=== PATIENT | male | born 1975 | race Caucasian/White ===

== ENCOUNTER → 2024-02-13 19:03 | Outpatient (CLI) | payer BC, SELFPAY ==
--- NOTE | 2024-02-13 19:08 | DI.MRI.S_ITS ---
PROCEDURE: MR LUMBAR SPINE WO CON INDICATIONS: LUMBOSACRAL SPONDYLOSIS TECHNIQUE: Noncontrast sagittal T1 spin echo and T2 fast echo, sagittal STIR, and T2 fast spin echo through the lumbar spine. In cases with scoliosis, additional coronal T2 fast spin echo may be performed. COMPARISON: [facility], CR, XR LUMBAR SPINE 2 OR 3 VIEWS, 02/08/2024, 11:56. FINDINGS: Image quality: Excellent. Alignment and Curvature: Mild straightening of the normal lumbar lordosis. Transitional vertebral body anatomy with lumbarization of S1. The 1st non rib-bearing vertebral bodies designated as L1. Bone Marrow: Marrow is of normal overall signal. No acute vertebral body compression fractures. Spinal Cord: Conus medullaris terminates at the L2 level. Visualized cord demonstrates normal signal and size. Paraspinous Soft Tissues: No paravertebral masses. T12-L1: Only seen on sagittal. Focal left paracentral disc protrusion. Possible mild central canal stenosis. No neural foraminal stenosis. L1-L2: Normal appearance. L2-L3: Mild facet arthropathy. No central canal or neural foraminal stenosis. L3-L4: Facet arthropathy and thickening of ligamentum flavum. Mild central canal stenosis. No neural foraminal stenosis. L4-L5: Disc desiccation and mild diffuse disc bulge with small superimposed central disc protrusion. Facet arthropathy and thickening of ligamentum flavum. Mild to moderate central canal stenosis. No neural foraminal stenosis. L5-S1: Disc desiccation and mild height loss. Diffuse disc bulge with superimposed disc extrusion asymmetric to the left and extending inferiorly. Facet arthropathy. Severe central canal stenosis. Severe narrowing of the left lateral recess with possible impingement the descending left S1 nerve root. Opip-ej-yignxzgu bilateral neural foraminal stenosis. S1-S2: Transitional level with rudimentary disc. Disc extrusion from the above level extending inferiorly in the left lateral recess severely narrows the left lateral recess with possible impingement the descending S2 nerve root. No neural foraminal stenosis. IMPRESSION: 1. Multilevel degenerative changes of the lumbar spine as described above. 2. Disc extrusion at L5-S1 resulting in severe central canal stenosis and narrowing of the left lateral recess with likely impingement of the descending left S1 nerve root. 3. Narrowing of the left lateral recess at S1-S2 from disc extrusion at the level above with possible impingement of the descending S2 nerve root. 4. Wqby-[id number]-[id number] bilateral neural foraminal stenosis at L5-S1. 5. Transitional vertebral body anatomy with lumbarization of the S1 vertebral body. Recommend correlation with radiographs prior to any intervention. Dictated by: Dinesh Celeste M.D. on 02/14/2024 at 9:35 Approved by: Dinesh Celeste M.D. on 02/14/2024 at 9:41
== END ==
LOC: MRI 19:06
PROVIDERS: PCP Registered Nurse; Referring Provider Registered Nurse; Visit Provider Registered Nurse
DX: M47.16 Other spondylosis with myelopathy, lumbar region (principal); M51.27 Other intervertebral disc displacement, lumbosacral region; M48.07 Spinal stenosis, lumbosacral region; M47.817 Spondylosis without myelopathy or radiculopathy, lumbosacral region; M48.08 Spinal stenosis, sacral and sacrococcygeal region
CPT/HCPCS: 72148